=== PATIENT | male | born 1960 | race Caucasian/White ===

== ENCOUNTER → 2021-01-01 | Outpatient (CLI) | payer OTHER | LOC: EXRD 09:40 | DX: K76.0 Fatty (change of) liver, not elsewhere classified (principal) | CPT/HCPCS: 76700 ==

== ENCOUNTER → 2021-08-26 | Outpatient (CLI) | payer OTHER ==
[2021-08-26 10:22] LABS: HEMOGLOBIN 15.3 gm/dl (14.0-17.5); RED BLOOD COUNT 4.42 M/UL (4.20-5.50); WHITE BLOOD COUNT 5.4 K/UL (4.5-11.0)
[2021-08-26 11:17] LABS: BUN/CREATININE RATIO 13 (0-10)
== END ==
LOC: LAB 09:28
PROVIDERS: Internal Medicine Interventional Cardiology
DX: I25.10 Atherosclerotic heart disease of native coronary artery without angina pectoris (principal); E78.00 Pure hypercholesterolemia, unspecified
CPT/HCPCS: 36415; 80048; 80061; 80076; 85027

== ENCOUNTER → 2021-10-28 | Outpatient (CLI) | payer OTHER | LOC: KOH-I 10:12 | DX: R07.81 Pleurodynia (principal); M54.9 Dorsalgia, unspecified; S22.31XA Fracture of one rib, right side, initial encounter for closed fracture | CPT/HCPCS: 71045; 71101 ==

== ENCOUNTER → 2022-05-20 | Outpatient (CLI) | payer OTHER | LOC: EXRD 09:00 | DX: K76.0 Fatty (change of) liver, not elsewhere classified (principal); R55 Syncope and collapse; I65.29 Occlusion and stenosis of unspecified carotid artery; E04.2 Nontoxic multinodular goiter | CPT/HCPCS: 76700; 93880 ==

== ENCOUNTER → 2022-06-22 | Outpatient (CLI) | payer OTHER | LOC: EXRD 10:29 | DX: E04.2 Nontoxic multinodular goiter (principal) | CPT/HCPCS: 76536 ==